=== PATIENT | male | born 1975 | race Caucasian/White ===

== ENCOUNTER → 2018-01-04 | Outpatient (CLI) | payer BC ==
[~2018-01-04] MED LIST: ALEVE220 MG PO; DEPAKOTE250 MG PO; EPIPEN ADU0.3 MG/0.3 IM; INDERAL LA60 MG PO; MEN'S MULTI-VI1 EACH PO; MOTRIN IB200 MG PO; PEPCID20 MG PO; PREDNISONE20 MG PO; WELLBUTRIN100 MG PO
== END | disposition home or self-care (01) ==
LOC: CDC 10:35
DX: Z01.810 Encounter for preprocedural cardiovascular examination (principal); E66.01 Morbid (severe) obesity due to excess calories
CPT/HCPCS: 93000

== ENCOUNTER 2018-01-07 22:04 | Inpatient (IN) | payer BC ==
[~2018-01-07] VITALS: Ht 177.8 cm; Wt 156.0 kg
[2018-01-08 09:15] VITALS: BP 141/97
[2018-01-08 14:21] VITALS: BP 157/87
[2018-01-08 20:11] VITALS: BP 142/79
[2018-01-08 23:44] VITALS: BP 144/78
[2018-01-09 03:26] VITALS: BP 127/62
[2018-01-09 06:11] LABS: HEMATOCRIT 43.3 % (38.0-50.0); MCH 27.2 PG (29.0-34.0); MCHC 32.3 G/DL (30.0-36.0); MCV 84.2 FL (86-99); PLATELET COUNT 253 K/uL (156-360); RBC DIS.WIDTH-SD 43.2 % (39-53); RED BLOOD COUNT 5.14 M/uL (4.00-5.50); WHITE BLOOD COUNT 17.4 K/uL (4.1-10.2)
[2018-01-09 06:40] LABS: CHLORIDE 99 MEQ/L (99-109); GFR ESTIMATE (CALCULATED) > 59 mL/min/ (58.99-99999); GLUCOSE 131 mg/dL (70-99); POTASSIUM 4.9 MEQ/L (3.7-5.4); SODIUM 136 MEQ/L (136-147); UREA NITROGEN (BUN) 13 mg/dL (9-23)
[2018-01-09 08:42] VITALS: BP 132/63
[2018-01-09] MEDS ORDERED: URSODIOL300 MG PO (11:18)
[2018-01-09] MEDS ORDERED: ZOFRAN8 MG PO (11:18)
[2018-01-09] MEDS ORDERED: DILAUDID4 MG PO (11:18)
[2018-01-09] MEDS ORDERED: OMEPRAZOLE20 MG PO (11:18)
[2018-01-09 11:55] VITALS: BP 136/60
[2018-01-09 15:52] VITALS: BP 185/90
[2018-01-09 19:45] VITALS: BP 142/70
[2018-01-09 23:45] VITALS: BP 150/68
[2018-01-10 03:38] VITALS: BP 160/66
[2018-01-10 06:53] LABS: HEMATOCRIT 45.9 % (38.0-50.0); MCH 27.3 PG (29.0-34.0); MCHC 32.7 G/DL (30.0-36.0); MCV 83.6 FL (86-99); PLATELET COUNT 257 K/uL (156-360); RBC DIS.WIDTH-CV 14.2 % (11.8-14.6); RED BLOOD COUNT 5.49 M/uL (4.00-5.50); WHITE BLOOD COUNT 14.3 K/uL (4.1-10.2)
[2018-01-10 07:14] LABS: CHLORIDE 97 MEQ/L (99-109); GFR ESTIMATE (CALCULATED) > 59 mL/min/ (58.99-99999); GLUCOSE 122 mg/dL (70-99); POTASSIUM 4.4 MEQ/L (3.7-5.4); SODIUM 135 MEQ/L (136-147); UREA NITROGEN (BUN) 15 mg/dL (9-23)
[2018-01-10 07:28] VITALS: BP 175/92
[2018-01-10 09:00] VITALS: BP 157/80
[2018-01-10 11:51] VITALS: BP 132/75
== END 2018-01-10 15:21 | disposition home or self-care (01) | DRG 621 ==
LOC: ENRESERV 22:04 → 2SOUTH 01-08 08:40 → 2EAST 01-08 08:40 → 2SOUTH 01-08 09:44 → ENRESERV 01-08 12:48 → 2EAST 01-08 14:16 → 2SOUTH 01-08 14:49 → 2EAST 01-10 15:21
PROVIDERS: Surgery
PROC: 0DB64Z3 Excision of Stomach, Percutaneous Endoscopic Approach, Vertical (ICD-10-PCS; principal; 2018-01-08)
DX: E66.01 Morbid (severe) obesity due to excess calories (principal); Z68.42 Body mass index [BMI] 45.0-49.9, adult; G47.33 Obstructive sleep apnea (adult) (pediatric); K21.9 Gastro-esophageal reflux disease without esophagitis; G43.909 Migraine, unspecified, not intractable, without status migrainosus
CPT/HCPCS: 80048; 85027; 86850; 86900; 86901; 88300; C9113; J0131; J0330; J1100; J1170; J1644; J1885; J2250; J2405; J2710; J3010; J3480; J7050; J7643; S0074